=== PATIENT | female | born 1970 | race African-American/Black ===

== ENCOUNTER 2022-08-13 20:25 | Inpatient (IN) | payer MEDICAID, OTHER ==
[~2022-08-13] VITALS: Ht 160 cm; Wt 84.6 kg
[2022-08-13] MEDS ORDERED: hydrALAZINE HCL 25 MG TAB PO ONE (21:30)
[2022-08-13 22:14] LABS: Basophils # (auto) 0.1 10 ^3/uL (0-0.2); Basophils % (auto) 0.5 % (0.0-2.0); Eosinophils # (auto) 0 10 ^3/uL (0-0.8); Eosinophils % (auto) 0.2 % (0.0-7.0); Hemoglobin 14.4 g/dL (12.2-16.2); Lymphocytes # (auto) 1.9 10 ^3/uL (0.4-5.4); Mean Corpuscular Hemoglobin 28.6 pg (28.0-32.0); Mean Corpuscular Volume 89.3 fL (80.0-100.0); Monocytes % (auto) 7.4 % (0.0-12.0); Neutrophils # (auto) 10.8 10 ^3/uL (1.6-8.6); Neutrophils % (auto) 77.9 % (37.0-80.0); Nucleated Red Blood Cells % 0.1 %; Red Blood Cells 5.04 10^6/uL (4.0-5.20); Red Cell Distribution Width 16.1 % (11.8-14.3); White Blood Cell 13.8 10^3/uL (4.4-10.8)
[2022-08-13] MEDS ORDERED: HYDROmorphone HCL 2 MG/ML VL/or syr IM ONE (22:15)
[2022-08-13 22:20] LABS: Albumin 3.8 g/dL (3.4-5.0); BUN/Creatinine Ratio 8.9 (10.0-20.0); Calcium 9.6 mg/dL (8.5-10.1); Potassium 3.5 mmol/L (3.5-5.1)
[2022-08-13 22:23] LABS: Bilirubin, Total 0.9 mg/dL (0.2-1.0); Total Protein 8.6 g/dL (6.4-8.2)
[2022-08-13 23:23] LABS: Urine Bacteria FEW /hpf (None Seen); Urine Blood Negative /uL (Negative); Urine WBC 7 /hpf (0 - 5)
[2022-08-14] MEDS ORDERED: ONDANSETRON HCL 4 MG/2 ML VIAL IV PRN (01:00)
[2022-08-14] MEDS ORDERED: hydrALAZINE HCL 20 MG/ML VL IV PRN (01:00)
[2022-08-14] MEDS ORDERED: ACETAMINOPHEN 325 MG TAB PO PRN (01:00)
[2022-08-14] MEDS ORDERED: cefTRIAXone 1GM/50ML D5W 50 ML IV ONE (01:00)
[2022-08-14] MEDS ORDERED: NITROGLYCERIN 0.4 MG SL TAB SL PRN (01:30)
[2022-08-14] MEDS ORDERED: MORPHINE SULFATE INJ 2 MG/ml SYRG IV PRN (01:30)
[2022-08-14] MEDS: SODIUM CHLORIDE 0.9% 1,000 ML IV SCH ×2 (01:48→18:23)
[2022-08-14] MEDS: amLODIPine BESYLATE 5 MG TAB PO SCH ×2 (01:49→08:01)
[2022-08-14 03:58] LABS: Basophils # (auto) 0.1 10 ^3/uL (0-0.2); Basophils % (auto) 0.3 % (0.0-2.0); Eosinophils # (auto) 0.1 10 ^3/uL (0-0.8); Eosinophils % (auto) 0.3 % (0.0-7.0); Hematocrit 45.2 % (36.0-46.0); Hemoglobin 14.8 g/dL (12.2-16.2); Lymphocytes # (auto) 1.1 10 ^3/uL (0.4-5.4); Lymphocytes % (auto) 5.7 % (10.0-50.0); Mean Corpuscular Hemoglobin 29.3 pg (28.0-32.0); Mean Corpuscular Hgb Conc. 32.6 g/dL (32.0-36.0); Mean Corpuscular Volume 89.8 fL (80.0-100.0); Monocytes # (auto) 0.5 10 ^3/uL (0-1.3); Monocytes % (auto) 2.4 % (0.0-12.0); Neutrophils # (auto) 17.8 10 ^3/uL (1.6-8.6); Neutrophils % (auto) 91.3 % (37.0-80.0); Nucleated Red Blood Cells % 0.1 %; Red Blood Cells 5.03 10^6/uL (4.0-5.20); Red Cell Distribution Width 16.2 % (11.8-14.3); White Blood Cell 19.5 10^3/uL (4.4-10.8)
[2022-08-14 04:02] LABS: Alanine Aminotransferase 17 U/L (13-56); Albumin 3.8 g/dL (3.4-5.0); Anion Gap 12 (5-15); Aspartate Aminotransferase 13 U/L (15-37); BUN/Creatinine Ratio 9.2 (10.0-20.0); Blood Urea Nitrogen 8 mg/dL (7-18); Calcium 9.1 mg/dL (8.5-10.1); Carbon Dioxide 19 mmol/L (21-32); Chloride 105 mmol/L (98-107); GFR African American 88 mL/min; GFR Non-African American 73 mL/min; Glucose 117 mg/dL (74-106); Potassium 3.3 mmol/L (3.5-5.1); Sodium 136 mmol/L (136-145)
[2022-08-14 04:04] LABS: Alkaline Phosphatase 175 U/L (45-117); Bilirubin, Total 0.7 mg/dL (0.2-1.0); Total Protein 8.7 g/dL (6.4-8.2)
[2022-08-14] MEDS: MORPHINE SULFATE INJ 2 MG/ml SYRG IV PRN ×3 (06:29→23:52)
[2022-08-14] MEDS ORDERED: amLODIPine BESYLATE 5 MG TAB PO ONE (07:45)
[2022-08-14] MEDS ORDERED: hydrALAZINE HCL 20 MG/ML VL IV ONE ×2 (07:45→21:15)
[2022-08-14] MEDS ORDERED: ASPirin-EC 325mg tab PO ONE (07:45)
[2022-08-14] MEDS ORDERED: cefTRIAXone 1GM/50ML D5W 50 ML IV SCH (09:00)
[2022-08-14] MEDS ORDERED: amLODIPine BESYLATE 5 MG TAB PO SCH (10:00)
[2022-08-14] MEDS: FAMOTIDINE (10MG/ML) 2ML VL IV SCH (10:03)
[2022-08-14] MEDS: METOPROLOL TARTRATE 50 MG TAB PO SCH ×2 (10:04→23:51)
[2022-08-14] MEDS: HEPARIN SODIUM (PORCINE) 5000 UNITS/ML 1ML VIAL SC SCH (10:05)
[2022-08-14] MEDS ORDERED: PIPERACILLIN-TAZOB 3.375GM 100 ML IV ONE (15:15)
[2022-08-14] MEDS ORDERED: POTASSIUM CHL 10 Meq TABLET PO ONE (15:15)
[2022-08-14] MEDS ORDERED: metroNIDAZOLE 500MG/100ML 100 ML IV ONE (15:15)
[2022-08-14] MEDS: hydrALAZINE HCL 20 MG/ML VL IV PRN (18:24)
[2022-08-14 21:39] VITALS: BP 168/73
[2022-08-14] MEDS ORDERED: PIPERACILLIN-TAZOB 3.375GM 100 ML IV SCH (22:00)
[2022-08-14] MEDS ORDERED: metroNIDAZOLE 500MG/100ML 100 ML IV SCH (22:00)
[2022-08-14] MEDS: ATORVASTATIN 20 MG TAB PO SCH (23:52)
[2022-08-15] MEDS: HEPARIN SODIUM (PORCINE) 5000 UNITS/ML 1ML VIAL SC SCH ×3 (00:06→21:53)
[2022-08-15] MEDS: PIPERACILLIN-TAZOB 3.375GM 100 ML IV SCH ×3 (02:50→18:19)
[2022-08-15 05:00] VITALS: BP 166/90
[2022-08-15] MEDS: hydrALAZINE HCL 20 MG/ML VL IV PRN (05:37)
[2022-08-15 06:50] LABS: Basophils # (auto) 0.1 10 ^3/uL (0-0.2); Basophils % (auto) 0.3 % (0.0-2.0); Eosinophils # (auto) 0 10 ^3/uL (0-0.8); Hematocrit 37.2 % (36.0-46.0); Hemoglobin 12.6 g/dL (12.2-16.2); Lymphocytes # (auto) 1.2 10 ^3/uL (0.4-5.4); Lymphocytes % (auto) 7.7 % (10.0-50.0); Mean Corpuscular Hemoglobin 29.5 pg (28.0-32.0); Mean Corpuscular Hgb Conc. 33.9 g/dL (32.0-36.0); Mean Corpuscular Volume 87.2 fL (80.0-100.0); Monocytes % (auto) 6.3 % (0.0-12.0); Neutrophils # (auto) 13.9 10 ^3/uL (1.6-8.6); Neutrophils % (auto) 85.7 % (37.0-80.0); Red Blood Cells 4.26 10^6/uL (4.0-5.20); White Blood Cell 16.2 10^3/uL (4.4-10.8)
[2022-08-15 07:39] LABS: Albumin 3.2 g/dL (3.4-5.0); Calcium 8.6 mg/dL (8.5-10.1); Potassium 3.1 mmol/L (3.5-5.1)
[2022-08-15 07:44] LABS: BUN/Creatinine Ratio 12.8 (10.0-20.0); Bilirubin, Total 1.2 mg/dL (0.2-1.0); Total Protein 7.3 g/dL (6.4-8.2)
[2022-08-15] MEDS: metroNIDAZOLE 500MG/100ML 100 ML IV SCH ×3 (08:28→23:17)
[2022-08-15] MEDS: amLODIPine BESYLATE 5 MG TAB PO SCH (08:28)
[2022-08-15] MEDS: ASPirin 81 mg TAB PO SCH (08:29)
[2022-08-15] MEDS: FAMOTIDINE (10MG/ML) 2ML VL IV SCH (08:29)
[2022-08-15] MEDS: METOPROLOL TARTRATE 50 MG TAB PO SCH ×2 (08:29→21:51)
[2022-08-15] MEDS: DOCUSATE SOD 100 MG CAP PO PRN (08:30)
[2022-08-15 09:00] VITALS: BP 166/90
[2022-08-15] MEDS: SODIUM CHLORIDE 0.9% 1,000 ML IV SCH (10:20)
[2022-08-15 13:00] VITALS: BP 147/75
[2022-08-15] MEDS: HYDROcodone-ACET 5/325MG TAB PO PRN ×2 (13:40→21:51)
[2022-08-15] MEDS ORDERED: POTASSIUM CHL 10 Meq TABLET PO ONE (16:00)
[2022-08-15 17:00] VITALS: BP 171/81
[2022-08-15] MEDS: ATORVASTATIN 20 MG TAB PO SCH (21:50)
[2022-08-15 22:00] VITALS: BP 158/78
[2022-08-16] MEDS: PIPERACILLIN-TAZOB 3.375GM 100 ML IV SCH ×3 (02:19→18:17)
[2022-08-16] MEDS: SODIUM CHLORIDE 0.9% 1,000 ML IV SCH ×2 (02:27→19:40)
[2022-08-16 05:00] VITALS: BP 148/77
[2022-08-16 07:29] LABS: Basophils # (auto) 0.1 10 ^3/uL (0-0.2); Basophils % (auto) 0.9 % (0.0-2.0); Eosinophils # (auto) 0 10 ^3/uL (0-0.8); Eosinophils % (auto) 0.4 % (0.0-7.0); Hematocrit 35.5 % (36.0-46.0); Hemoglobin 11.7 g/dL (12.2-16.2); Lymphocytes # (auto) 1.6 10 ^3/uL (0.4-5.4); Lymphocytes % (auto) 13.5 % (10.0-50.0); Mean Corpuscular Hemoglobin 29.1 pg (28.0-32.0); Mean Corpuscular Hgb Conc. 33.1 g/dL (32.0-36.0); Mean Corpuscular Volume 87.8 fL (80.0-100.0); Monocytes # (auto) 1.1 10 ^3/uL (0-1.3); Monocytes % (auto) 9.1 % (0.0-12.0); Neutrophils # (auto) 8.8 10 ^3/uL (1.6-8.6); Neutrophils % (auto) 76.1 % (37.0-80.0); Red Blood Cells 4.04 10^6/uL (4.0-5.20); Red Cell Distribution Width 15.1 % (11.8-14.3); White Blood Cell 11.6 10^3/uL (4.4-10.8)
[2022-08-16 09:00] VITALS: BP 158/85
[2022-08-16] MEDS: metroNIDAZOLE 500MG/100ML 100 ML IV SCH ×3 (09:27→23:39)
[2022-08-16] MEDS: FAMOTIDINE (10MG/ML) 2ML VL IV SCH (09:27)
[2022-08-16] MEDS: ASPirin 81 mg TAB PO SCH (09:27)
[2022-08-16] MEDS: amLODIPine BESYLATE 5 MG TAB PO SCH (10:20)
[2022-08-16] MEDS: HEPARIN SODIUM (PORCINE) 5000 UNITS/ML 1ML VIAL SC SCH ×2 (10:20→22:17)
[2022-08-16] MEDS: METOPROLOL TARTRATE 50 MG TAB PO SCH ×2 (10:21→22:15)
[2022-08-16] MEDS: DOCUSATE SOD 100 MG CAP PO PRN ×2 (10:22→20:34)
[2022-08-16 13:00] VITALS: BP 173/91
[2022-08-16] MEDS: hydrALAZINE HCL 20 MG/ML VL IV PRN (15:26)
[2022-08-16] MEDS ORDERED: POTASSIUM CHL 10 Meq TABLET PO ONE (16:30)
[2022-08-16] MEDS ORDERED: SPIRONOLACTONE 25 MG TAB PO ONE (16:30)
[2022-08-16] MEDS: HYDROcodone-ACET 5/325MG TAB PO PRN (16:30)
[2022-08-16 17:00] VITALS: BP 151/65
[2022-08-16 22:00] VITALS: BP 157/78
[2022-08-16] MEDS: ATORVASTATIN 20 MG TAB PO SCH (22:10)
[2022-08-17] VITALS (7 sets, daily range): BP systolic 157–188; BP diastolic 78–98
[2022-08-17] MEDS: PIPERACILLIN-TAZOB 3.375GM 100 ML IV SCH ×3 (02:18→18:55)
[2022-08-17] MEDS: hydrALAZINE HCL 20 MG/ML VL IV PRN ×3 (06:55→20:33)
[2022-08-17] MEDS: metroNIDAZOLE 500MG/100ML 100 ML IV SCH ×2 (09:23→16:13)
[2022-08-17] MEDS: METOPROLOL TARTRATE 50 MG TAB PO SCH ×2 (10:05→21:14)
[2022-08-17] MEDS: ASPirin 81 mg TAB PO SCH (10:05)
[2022-08-17] MEDS: SPIRONOLACTONE 25 MG TAB PO SCH (10:06)
[2022-08-17] MEDS: FAMOTIDINE (10MG/ML) 2ML VL IV SCH (10:06)
[2022-08-17] MEDS: amLODIPine BESYLATE 5 MG TAB PO SCH (10:06)
[2022-08-17] MEDS: HEPARIN SODIUM (PORCINE) 5000 UNITS/ML 1ML VIAL SC SCH ×2 (10:10→21:18)
[2022-08-17] MEDS: SODIUM CHLORIDE 0.9% 1,000 ML IV SCH (12:20)
[2022-08-17] MEDS: ATORVASTATIN 20 MG TAB PO SCH (21:14)
[2022-08-18] MEDS: PIPERACILLIN-TAZOB 3.375GM 100 ML IV SCH ×3 (03:19→18:10)
[2022-08-18] MEDS: hydrALAZINE HCL 20 MG/ML VL IV PRN ×3 (04:14→22:50)
[2022-08-18 04:58] VITALS: BP 160/72
[2022-08-18] MEDS: SODIUM CHLORIDE 0.9% 1,000 ML IV SCH ×3 (05:00→22:40)
[2022-08-18 06:42] LABS: Basophils # (auto) 0.1 10 ^3/uL (0-0.2); Basophils % (auto) 0.6 % (0.0-2.0); Eosinophils # (auto) 0.1 10 ^3/uL (0-0.8); Hematocrit 38.4 % (36.0-46.0); Hemoglobin 12.5 g/dL (12.2-16.2); Lymphocytes # (auto) 1.8 10 ^3/uL (0.4-5.4); Lymphocytes % (auto) 17.7 % (10.0-50.0); Mean Corpuscular Hemoglobin 29.1 pg (28.0-32.0); Mean Corpuscular Hgb Conc. 32.5 g/dL (32.0-36.0); Mean Corpuscular Volume 89.6 fL (80.0-100.0); Monocytes # (auto) 0.9 10 ^3/uL (0-1.3); Monocytes % (auto) 8.9 % (0.0-12.0); Neutrophils # (auto) 7.2 10 ^3/uL (1.6-8.6); Neutrophils % (auto) 71.8 % (37.0-80.0); Nucleated Red Blood Cells % 0.1 %; Red Blood Cells 4.29 10^6/uL (4.0-5.20); Red Cell Distribution Width 15.8 % (11.8-14.3)
[2022-08-18 06:45] LABS: BUN/Creatinine Ratio 13.4 (10.0-20.0); Calcium 8.3 mg/dL (8.5-10.1); Potassium 3.6 mmol/L (3.5-5.1)
[2022-08-18 09:00] VITALS: BP 159/80
[2022-08-18] MEDS: amLODIPine BESYLATE 5 MG TAB PO SCH (09:37)
[2022-08-18] MEDS: SPIRONOLACTONE 25 MG TAB PO SCH (09:37)
[2022-08-18] MEDS: ASPirin 81 mg TAB PO SCH (09:37)
[2022-08-18] MEDS: metroNIDAZOLE 500MG/100ML 100 ML IV SCH ×4 (09:38→17:02)
[2022-08-18] MEDS: METOPROLOL TARTRATE 50 MG TAB PO SCH ×2 (09:38→21:16)
[2022-08-18] MEDS: FAMOTIDINE (10MG/ML) 2ML VL IV SCH ×2 (09:38→10:00)
[2022-08-18] MEDS: HEPARIN SODIUM (PORCINE) 5000 UNITS/ML 1ML VIAL SC SCH ×2 (09:48→21:17)
[2022-08-18] MEDS ORDERED: IOHEXOL 300 MG/ML 100ML BOTTLE IJ ONE (10:20)
[2022-08-18] MEDS ORDERED: GASTROGRAFIN 30 ML SOL ONE (10:20)
[2022-08-18 13:01] VITALS: BP 164/96
[2022-08-18 17:00] VITALS: BP 179/101
[2022-08-18] MEDS: Juven Orange Powder PACKET 27.5gm PO SCH (18:10)
[2022-08-18 20:00] VITALS: BP 158/88
[2022-08-18] MEDS: ATORVASTATIN 20 MG TAB PO SCH (21:16)
[2022-08-18 22:00] VITALS: BP 167/84
[2022-08-19] MEDS: PIPERACILLIN-TAZOB 3.375GM 100 ML IV SCH (02:34)
[2022-08-19 05:15] VITALS: BP 163/92
[2022-08-19] MEDS: Juven Orange Powder PACKET 27.5gm PO SCH (08:00)
[2022-08-19 09:00] VITALS: BP 167/98
[2022-08-19] MEDS: METOPROLOL TARTRATE 50 MG TAB PO SCH (09:47)
[2022-08-19] MEDS: SPIRONOLACTONE 25 MG TAB PO SCH (09:47)
[2022-08-19] MEDS: ASPirin 81 mg TAB PO SCH (09:47)
[2022-08-19] MEDS: metroNIDAZOLE 500MG/100ML 100 ML IV SCH ×3 (09:47→16:42)
[2022-08-19] MEDS: amLODIPine BESYLATE 5 MG TAB PO SCH (09:48)
[2022-08-19] MEDS: HEPARIN SODIUM (PORCINE) 5000 UNITS/ML 1ML VIAL SC SCH (09:53)
[2022-08-19] MEDS: FAMOTIDINE (10MG/ML) 2ML VL IV SCH (10:00)
[2022-08-19 13:00] VITALS: BP 168/98
[2022-08-19] MEDS ORDERED: SPIR25TA PO (13:11)
[2022-08-19] MEDS ORDERED: AMOX500T86 PO (13:11)
[2022-08-19] MEDS ORDERED: MET50T PO (13:11)
[2022-08-19] MEDS ORDERED: AML5T PO (13:11)
== END 2022-08-19 17:52 | disposition home or self-care (01) | DRG 393 ==
LOC: ER 20:25 → OVERFLOW 08-14 01:18 → TELE-WESTW 08-14 21:40
PROVIDERS: ADMIT Nurse Practitioner Family; ATTEND Internal Medicine Pulmonary Disease
PROC: 05HB33Z Insertion of Infusion Device into Right Basilic Vein, Percutaneous Approach (ICD-10-PCS; principal; 2022-08-14)
PROC: B54MZZA Ultrasonography of Right Upper Extremity Veins, Guidance (ICD-10-PCS; 2022-08-14)
DX: K61.1 Rectal abscess (principal); I21.4 Non-ST elevation (NSTEMI) myocardial infarction; I16.1 Hypertensive emergency; N39.0 Urinary tract infection, site not specified; I10 Essential (primary) hypertension; E66.01 Morbid (severe) obesity due to excess calories; K61.2 Anorectal abscess; K62.89 Other specified diseases of anus and rectum; Z68.33 Body mass index [BMI] 33.0-33.9, adult
CPT/HCPCS: 36415; 71045; 74176; 74178; 80048; 80053; 81001; 82962; 83690; 83880; 84132; 84484; 85025; 87086; 93005; 93306; 96365; 96367; 96372; 96375; 96376; G0378; J0696; J2543; J3490

== ENCOUNTER 2024-02-23 10:28 | Emergency (ER) | payer MEDICAID ==
[~2024-02-23] VITALS: Ht 154.9 cm; Wt 89.2 kg
[~2024-02-23 10:28] MED LIST: AML5T PO; AMOX500T86 PO; MET50T PO; SPIR25TA PO
--- NOTE | 2024-02-23 11:09 | ED.PDOC ---
HPI Comments 53-year-old female with past medical history of hypertension presented with complaints of elevated blood pressure. Patient went to her PCP where her blood pressure was 199/106 and PCP referred the patient to the ER. She is currently not complaining of any symptoms, mentions no chest pain, shortness of breath, headache, dizziness, blurred vision, abdominal pain, nausea, vomiting. She takes losartan, hydrochlorothiazide and amlodipine for the blood pressure but ran out of losartan and amlodipine for last one week and was only taking hydrochlorothiazide. Past medical history Hypertension Past surgical history Social history Positive for smoking, occasional alcohol, denied any other drug intake Allergic history Denied Family history Noncontributory Medication history Losartan, hydrochlorothiazide and amlodipine ROS Constitutional: No: Fever, Chills, Sweats, Weakness, Malaise, Other Eyes: No: Pain, Vision change, Conjunctivae inflammation, Eyelid inflammation, Other, Redness ENT: No: Ear pain, Ear discharge, Nose pain, Nose discharge, Nose congestion, Mouth pain, Mouth swelling, Throat pain, Throat swelling, Other Respiratory: No: Cough, Dry, Shortness of breath, SOB with excertion, Wheezing, Hemoptysis, Pleuritic Pain, Sputum, Wheezing, Other Cardiovascular: No: Chest Pain, Palpitations, Orthopnea, Paroxysmal Noc. Dyspnea, Edema, Lt Headedness, Other Gastrointestinal: No: Nausea, Vomiting, Abdominal Pain, Diarrhea, Constipation, Melena, Hematochezia, Other Musculoskeletal: No: other, neck pain, shoulder pain, arm pain, back pain, hand pain, leg pain, foot pain Neurological:; No: Weakness, Numbness, Incoordination, Change in speech, Confusion, Seizures Examination General Appearance: Alert, Oriented X3, Cooperative, No acute distress HEENT: EOMI Respiratory: Clear to auscultation, Normal air movement Cardiovascular: Regular rate, Normal S1, Normal S2 Abdominal: Normal bowel sounds Extremities: No cyanosis, No edema, Normal pulses, No tenderness/swelling Skin: No rashes, No breakdown Neuro: Normal gait, speech, tone, strength, no motor/ sensory deficit Chief Complaint: High Blood Pressure Time Seen by MD: 10:42 Reviewed Notes: Nurses Notes Allergies: Coded Allergies: NO KNOWN ALLERGIES (Unverified , 08/13/22) Home Meds Active Scripts Spironolactone (Aldactone) 25 Mg Tab, 25 MG PO DAILY for 30 Days, #30 TAB Prov:CLARK NUÑEZ MD 08/19/22 Metoprolol Tartrate (LOPRESSOR TABLET) 50 Mg Tb, 50 MG PO BID for 30 Days, #60 TAB Prov:CLARK NUÑEZ MD 08/19/22 Amlodipine Besylate (NORVASC TABLET) 5 Mg Tb, 10 MG PO DAILY for 30 Days, #30 TAB Prov:CLARK NUÑEZ MD 08/19/22 Amoxicillin & Pot Clavulanate (Augmentin) 500 Mg Tab, 1 TAB PO BID, #14 TAB Prov:CLARK NUÑEZ MD 08/19/22 Information Source: Patient Mode of Arrival: Ambulatory CP Differential Dx Differential Diagnosis: Other (Hypertensive urgency, hypertensive emergency,) Differential Diagnosis: HTN Essential, HTN Accelerated Differential Diagnosis: Aortic dissection, Other X-Ray, Labs, Meds, VS Vital Signs Date Time Temp Pulse Resp B/P (MAP) Pulse Ox O2 Delivery O2 Flow Rate FiO2 02/23/24 12:29 100 12 166/85 (112) 99 02/23/24 12:00 86 02/23/24 11:54 160/92 02/23/24 11:45 98.1 90 12 160/92 (114) 99 98.1 02/23/24 11:45 90 12 99 Room Air* 0 21 02/23/24 10:59 98.0 116 18 220/129 (159) 98 02/23/24 10:54 104 Current Medications Medications (Trade) Dose Ordered Sig/Carlos Route Start Time Stop Time Status Last Admin Hydralazine HCl (Apresoline Injection) 10 mg ONCE ONCE IV 02/23/24 11:15 02/23/24 11:16 DC 02/23/24 11:54 Time of 1ST Reevaluation: 13:00 (Blood pressure improved to 160/85. Patient is still asymptomatic.) Reevaluation 1ST: Improved Patient Education/Counseling: Diagnosis, Treatment Family Education/Counseling: No Family Present Comments Patient presented with the high blood pressure in the hypertensive urgency range. Patient was asymptomatic. Patient was given: IV hydralazine 10 mg once, blood pressure improved to 160/85. Patient was always asymptomatic in the ER Patient has been observed in the ED adequate length of time to insure improvement/stability. Patient will be discharged to home. As per patient, patient's PCP already refilled her home medications at pharmacy. Departure 1 Departure Time of Disposition: 12:57 Impression: Primary Impression: Asymptomatic hypertensive urgency Disposition: HOME / SELF CARE / HOMELESS Condition: Stable Additional Instructions: Additional discharge instructions: You MUST follow-up with your primary care/family doctor in 1 to 2 days. If you are unable to see your primary care/family doctor, please return to our emergency room for re-assessment and re-evaluation in 1 to 2 days. Return to the emergency room here in our facility or to the nearest ER [facility] if your symptoms change or worsen. Discharged With: Self TRISHA ANTOINE RESIDENT Feb 23, 2024 11:09
[2024-02-23 11:45] VITALS: PULSE 90; RESP 12; TEMP 98.1; O2SAT 99
[2024-02-23] MEDS: hydrALAZINE HCL 20 MG/ML VL IV ONE (11:54)
[2024-02-23 12:29] VITALS: BP 166/85; PULSE 100; RESP 12; O2SAT 99
--- NOTE | 2024-02-28 12:34 | ECG ---
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
== END 2024-02-23 13:13 | disposition home or self-care (01) ==
LOC: ER 10:28
DX: I16.0 Hypertensive urgency (principal); I10 Essential (primary) hypertension; Z79.899 Other long term (current) drug therapy
CPT/HCPCS: 93005; 96374; 99283; J0360